=== PATIENT | male | born 1935 | race Caucasian/White ===

== ENCOUNTER 2018-03-20 16:50 | Inpatient (IN) | payer MEDICARE, OTHER ==
[~2018-03-20] VITALS: Ht 175.3 cm; Wt 78.9 kg
[2018-03-20] MEDS ORDERED: TEMAZEPAM 15 MG CAPSULE PO PRN (18:00)
[2018-03-20] MEDS ORDERED: DEXTROSE 50%-WATER 25 GM/50 ML SYRINGE IVP PRN (18:00)
[2018-03-20] MEDS ORDERED: CARBOXYMETHYLCELLULOSE SODIUM 0.4 ML OPHTHALMIC SOLUTION [PF] OU PRN (18:00)
[2018-03-20 18:53] VITALS: BP 148/82
[2018-03-20 18:53] LABS: GLUCOMETER DEV NAME(LOC) 2WR 1B; GLUCOSE,POINT OF CARE 174 MG/DL (70-110)
[2018-03-20] MEDS: INSULIN LISPRO 100 UNITS/ML SQ PRN (19:29)
[2018-03-20 20:37] LABS: APPEARANCE,URINE CLEAR (CLEAR); BILIRUBIN,URINE NEGATIVE (NEGATIVE); GLUCOSE, URINE (UA) NEGATIVE (NEGATIVE); KETONES,URINE NEGATIVE (NEGATIVE); LEUKOCYTE ESTERASE ,URINE NEGATIVE (NEGATIVE); NITRATE,URINE NEGATIVE (NEGATIVE); OCCULT BLOOD,URINE NEGATIVE (NEGATIVE); PH,URINE 5.5 (5.0-8.0); PROTEIN,URINE SEE CONFIRM (NEGATIVE); UROBILINOGEN,URINE 0.2 mg/dL (<=1.0)
[2018-03-20 21:00] LABS: SULFOSALICYLIC ACID,URINE 3+ (Negative)
[2018-03-20] MEDS ORDERED: DOCUSATE SODIUM 100 MG CAPSULE PO SCH (21:00)
[2018-03-20 21:02] LABS: BACTERIA,URINE Rare /HPF (None Seen); RBC,URINE None Seen /HPF (0-2)
[2018-03-20 21:03] LABS: SQUAMOUS EPITHELIAL CELL,UR Rare /LPF (None Seen)
[2018-03-20] MEDS: SENNA 187 MG TABLET PO SCH (22:36)
[2018-03-20] MEDS: ATORVASTATIN CALCIUM 40 MG TABLET PO SCH (22:37)
[2018-03-20] MEDS: INSULIN GLARGINE,HUM.REC.ANLOG 100 UNITS/ML SQ SCH (22:38)
[2018-03-20] MEDS: TraMADol HCL 50 MG TABLET PO PRN (22:39)
[2018-03-20] MEDS: DOCUSATE SODIUM 250 MG CAPSULE PO SCH (22:50)
[2018-03-20 22:58] LABS: GLUCOMETER DEV NAME(LOC) 2WR 1B; GLUCOSE,POINT OF CARE 160 MG/DL (70-110)
[2018-03-20 23:39] VITALS: BP 151/69
[2018-03-21] MEDS: HYDROCODONE/ACETAMINOPHEN 5-325 MG TABLET PO PRN ×3 (01:19→22:26)
[2018-03-21 06:35] LABS: GLUCOMETER DEV NAME(LOC) 2WR 2E; GLUCOSE,POINT OF CARE 152 MG/DL (70-110)
[2018-03-21 06:44] LABS: BASOPHILS % (AUTO) 0.8 % (0.0-2.0); EOSINOPHILS % (AUTO) 2.2 % (1.0-6.0); HEMOGLOBIN 11.4 g/dL (13.5-17.5); LYMPHOCYTES % (AUTO) 31.1 % (22.0-44.0); MEAN CORPUSCULAR HEMOGLOBIN 29.3 pg (26.0-34.0); MEAN CORPUSCULAR HGB CONC 33.5 G/dL (31.0-37.0); MEAN CORPUSCULAR VOLUME 88 fL (80-100); MONOCYTES # (AUTO) 0.5 K/uL (0.1-1.0); MONOCYTES % (AUTO) 7.9 % (2.0-9.0); NEUTROPHILS # (AUTO) 3.7 K/uL (1.8-7.7); PLATELET COUNT (AUTO) 257 K/uL (150-450); RED BLOOD CELL COUNT(AUTO) 3.89 MIL/uL (4.50-5.90); RED CELL DISTRIBUTION WIDTH 14.1 % (11.5-14.5)
[2018-03-21 06:57] LABS: ALBUMIN 3.1 g/dL (3.4-5.0); BILIRUBIN,TOTAL 0.5 mg/dL (0.1-1.0); CALCIUM, TOTAL 9.1 mg/dL (8.8-10.5); CREATININE 1.75 mg/dL (0.60-1.30); POTASSIUM 4.4 mmol/L (3.5-5.1); TOTAL PROTEIN, SERUM 6.9 g/dL (6.4-8.2)
[2018-03-21] MEDS ORDERED: ENOXAPARIN SODIUM 30 MG/0.3 ML PF SYRINGE SQ SCH (09:00)
[2018-03-21] MEDS: CLOPIDOGREL BISULFATE 75 MG TABLET PO SCH (10:47)
[2018-03-21] MEDS: DOCUSATE SODIUM 250 MG CAPSULE PO SCH ×2 (10:47→20:29)
[2018-03-21] MEDS: ASPIRIN 81 MG CHEWABLE TABLET PO SCH (10:47)
[2018-03-21] MEDS: POLYETHYLENE GLYCOL 3350 17 GM PACKET PO SCH ×2 (10:47→20:30)
[2018-03-21 10:58] VITALS: BP 148/82
[2018-03-21] MEDS: ONDANSETRON HCL 4 MG TABLET PO PRN (11:04)
[2018-03-21] MEDS: TraMADol HCL 50 MG TABLET PO PRN (11:53)
[2018-03-21 12:44] LABS: GLUCOMETER DEV NAME(LOC) 2WR 2E; GLUCOSE,POINT OF CARE 162 MG/DL (70-110)
[2018-03-21 12:50] VITALS: BP 130/78
[2018-03-21] MEDS: INSULIN LISPRO 100 UNITS/ML SQ PRN ×2 (13:29→20:35)
[2018-03-21 15:29] VITALS: BP 148/69
[2018-03-21 18:04] LABS: GLUCOMETER DEV NAME(LOC) 2WR 2E; GLUCOSE,POINT OF CARE 158 MG/DL (70-110)
[2018-03-21] MEDS: SENNA 187 MG TABLET PO SCH (20:29)
[2018-03-21] MEDS: ATORVASTATIN CALCIUM 40 MG TABLET PO SCH (20:31)
[2018-03-21] MEDS: INSULIN GLARGINE,HUM.REC.ANLOG 100 UNITS/ML SQ SCH (20:33)
[2018-03-21 21:38] LABS: GLUCOMETER DEV NAME(LOC) 2WR 2E; GLUCOSE,POINT OF CARE 142 MG/DL (70-110)
[2018-03-21 23:26] VITALS: BP 129/73
[2018-03-22] VITALS: BP 129/73
[2018-03-22] MEDS: TraMADol HCL 50 MG TABLET PO PRN (01:07)
[2018-03-22 06:39] LABS: GLUCOMETER DEV NAME(LOC) 2WR 1B; GLUCOSE,POINT OF CARE 91 MG/DL (70-110)
[2018-03-22] MEDS: ONDANSETRON HCL 4 MG TABLET PO PRN (09:14)
[2018-03-22 09:20] VITALS: BP 129/71
[2018-03-22] MEDS: ASPIRIN 81 MG CHEWABLE TABLET PO SCH (09:27)
[2018-03-22] MEDS: DOCUSATE SODIUM 250 MG CAPSULE PO SCH ×2 (09:27→20:25)
[2018-03-22] MEDS: CLOPIDOGREL BISULFATE 75 MG TABLET PO SCH (09:27)
[2018-03-22] MEDS: POLYETHYLENE GLYCOL 3350 17 GM PACKET PO SCH ×2 (09:27→20:25)
[2018-03-22 10:05] VITALS: BP 121/75
[2018-03-22 12:53] LABS: GLUCOMETER DEV NAME(LOC) 2WR 2E; GLUCOSE,POINT OF CARE 127 MG/DL (70-110)
[2018-03-22] MEDS: MAGNESIUM CITRATE 300 ML ORAL SOLUTION PO PRN (13:39)
[2018-03-22] MEDS ORDERED: ENOXAPARIN SODIUM 40 MG/0.4 ML PF SYRINGE SQ SCH (14:45)
[2018-03-22 15:57] VITALS: BP 133/86
[2018-03-22 17:49] LABS: GLUCOMETER DEV NAME(LOC) 2WR 1B; GLUCOSE,POINT OF CARE 120 MG/DL (70-110)
[2018-03-22] MEDS: DOCUSATE SODIUM 283 MG/5 ML MINI-ENEMA PR PRN (20:05)
[2018-03-22] MEDS: HEPARIN SODIUM,PORCINE 5,000 UNITS/ML VIAL SQ SCH (20:25)
[2018-03-22] MEDS: ATORVASTATIN CALCIUM 40 MG TABLET PO SCH (20:25)
[2018-03-22] MEDS: SENNA 187 MG TABLET PO SCH (20:25)
[2018-03-22] MEDS: INSULIN GLARGINE,HUM.REC.ANLOG 100 UNITS/ML SQ SCH (21:00)
[2018-03-22 22:04] LABS: GLUCOMETER DEV NAME(LOC) 2WR 2E; GLUCOSE,POINT OF CARE 116 MG/DL (70-110)
[2018-03-22] MEDS: MELATONIN 3 MG TABLET PO PRN (23:48)
[2018-03-23] MEDS: ONDANSETRON HCL 4 MG TABLET PO PRN (00:04)
[2018-03-23 00:09] VITALS: BP 147/71
[2018-03-23] MEDS: HYDROCODONE/ACETAMINOPHEN 5-325 MG TABLET PO PRN (00:09)
[2018-03-23 06:23] LABS: GLUCOMETER DEV NAME(LOC) 2WR 1B; GLUCOSE,POINT OF CARE 103 MG/DL (70-110)
[2018-03-23 07:37] VITALS: BP 131/67
[2018-03-23] MEDS: POLYETHYLENE GLYCOL 3350 17 GM PACKET PO SCH ×3 (09:00→20:52)
[2018-03-23] MEDS: MAGNESIUM CITRATE 300 ML ORAL SOLUTION PO PRN (11:31)
[2018-03-23] MEDS: HEPARIN SODIUM,PORCINE 5,000 UNITS/ML VIAL SQ SCH ×2 (11:31→20:52)
[2018-03-23] MEDS: CLOPIDOGREL BISULFATE 75 MG TABLET PO SCH (11:31)
[2018-03-23] MEDS: DOCUSATE SODIUM 250 MG CAPSULE PO SCH ×2 (11:31→20:52)
[2018-03-23] MEDS: ASPIRIN 81 MG CHEWABLE TABLET PO SCH (11:31)
[2018-03-23 12:24] LABS: GLUCOMETER DEV NAME(LOC) 2WR 2E; GLUCOSE,POINT OF CARE 85 MG/DL (70-110)
[2018-03-23] MEDS: DOCUSATE SODIUM 283 MG/5 ML MINI-ENEMA PR PRN (12:39)
[2018-03-23] MEDS ORDERED: MAGNESIUM CITRATE 300 ML ORAL SOLUTION PO ONE ×2 (12:45→13:30)
[2018-03-23 15:45] VITALS: BP 143/82
[2018-03-23 18:24] LABS: GLUCOMETER DEV NAME(LOC) 2WR 1B; GLUCOSE,POINT OF CARE 165 MG/DL (70-110)
[2018-03-23] MEDS: ATORVASTATIN CALCIUM 40 MG TABLET PO SCH (20:52)
[2018-03-23] MEDS: SENNA 187 MG TABLET PO SCH (20:52)
[2018-03-23] MEDS: INSULIN GLARGINE,HUM.REC.ANLOG 100 UNITS/ML SQ SCH (21:00)
[2018-03-23] MEDS: TraMADol HCL 50 MG TABLET PO PRN (21:31)
[2018-03-23 22:09] LABS: GLUCOMETER DEV NAME(LOC) 2WR 1B; GLUCOSE,POINT OF CARE 143 MG/DL (70-110)
[2018-03-23 23:43] VITALS: BP 124/62
[2018-03-23] MEDS: MELATONIN 3 MG TABLET PO PRN (23:43)
[2018-03-24 06:14] LABS: GLUCOMETER DEV NAME(LOC) 2WR 2E; GLUCOSE,POINT OF CARE 143 MG/DL (70-110)
[2018-03-24 07:50] VITALS: BP 129/75
[2018-03-24] MEDS: POLYETHYLENE GLYCOL 3350 17 GM PACKET PO SCH ×2 (09:00→20:29)
[2018-03-24] MEDS: DOCUSATE SODIUM 250 MG CAPSULE PO SCH ×2 (09:00→20:29)
[2018-03-24] MEDS ORDERED: FAMOTIDINE 20 MG TABLET PO ONE (09:30)
[2018-03-24] MEDS: ASPIRIN 81 MG CHEWABLE TABLET PO SCH (09:32)
[2018-03-24] MEDS: CLOPIDOGREL BISULFATE 75 MG TABLET PO SCH (09:32)
[2018-03-24] MEDS: ONDANSETRON HCL 4 MG TABLET PO PRN (09:32)
[2018-03-24] MEDS: HYDROCODONE/ACETAMINOPHEN 5-325 MG TABLET PO PRN (09:32)
[2018-03-24] MEDS: HEPARIN SODIUM,PORCINE 5,000 UNITS/ML VIAL SQ SCH ×2 (09:32→20:28)
[2018-03-24 12:06] LABS: BASOPHILS % (AUTO) 0.8 % (0.0-2.0); EOSINOPHILS % (AUTO) 0.9 % (1.0-6.0); HEMATOCRIT 37.1 % (41-53); HEMOGLOBIN 12.2 g/dL (13.5-17.5); LYMPHOCYTES # (AUTO) 0.9 K/uL (1.0-4.8); LYMPHOCYTES % (AUTO) 12.5 % (22.0-44.0); MEAN CORPUSCULAR HEMOGLOBIN 28.7 pg (26.0-34.0); MEAN CORPUSCULAR HGB CONC 32.9 G/dL (31.0-37.0); MEAN CORPUSCULAR VOLUME 87 fL (80-100); MONOCYTES # (AUTO) 0.5 K/uL (0.1-1.0); MONOCYTES % (AUTO) 6.3 % (2.0-9.0); NEUTROPHILS # (AUTO) 5.8 K/uL (1.8-7.7); NEUTROPHILS % (AUTO) 79.5 % (40.0-70.0); PLATELET COUNT (AUTO) 302 K/uL (150-450); RED BLOOD CELL COUNT(AUTO) 4.25 MIL/uL (4.50-5.90); RED CELL DISTRIBUTION WIDTH 14.7 % (11.5-14.5)
[2018-03-24 12:39] LABS: GLUCOMETER DEV NAME(LOC) 2WR 1B; GLUCOSE,POINT OF CARE 173 MG/DL (70-110)
[2018-03-24] MEDS: LEVOTHYROXINE SODIUM 50 MCG TABLET PO SCH (13:19)
[2018-03-24] MEDS: INSULIN LISPRO 100 UNITS/ML SQ PRN ×2 (13:21→18:49)
[2018-03-24 14:40] LABS: ALBUMIN 3.5 g/dL (3.4-5.0); BILIRUBIN,TOTAL 0.5 mg/dL (0.1-1.0); CALCIUM, TOTAL 9.2 mg/dL (8.8-10.5); CREATININE 2.06 mg/dL (0.60-1.30); POTASSIUM 5.3 mmol/L (3.5-5.1); TOTAL PROTEIN, SERUM 7.8 g/dL (6.4-8.2)
[2018-03-24] MEDS ORDERED: SODIUM POLYSTYRENE SULFONATE 15 GM/60 ML SUSPENSION BOTTLE PO ONE (15:45)
[2018-03-24 15:52] VITALS: BP 138/79
[2018-03-24] MEDS: FAMOTIDINE 20 MG TABLET PO SCH (16:50)
[2018-03-24 17:58] LABS: GLUCOMETER DEV NAME(LOC) 2WR 2E; GLUCOSE,POINT OF CARE 150 MG/DL (70-110)
[2018-03-24] MEDS: SODIUM CHLORIDE 0.9% 1,000 ML IV SCH (18:19)
[2018-03-24] MEDS: SENNA 187 MG TABLET PO SCH (20:29)
[2018-03-24] MEDS: ATORVASTATIN CALCIUM 40 MG TABLET PO SCH (20:29)
[2018-03-24] MEDS: INSULIN GLARGINE,HUM.REC.ANLOG 100 UNITS/ML SQ SCH (21:00)
[2018-03-24 22:53] LABS: GLUCOMETER DEV NAME(LOC) 2WR 2E; GLUCOSE,POINT OF CARE 161 MG/DL (70-110)
[2018-03-25] MEDS: MELATONIN 3 MG TABLET PO PRN ×2 (00:30→22:20)
[2018-03-25 00:44] VITALS: BP 132/66
[2018-03-25] MEDS: LEVOTHYROXINE SODIUM 50 MCG TABLET PO SCH (05:22)
[2018-03-25] MEDS: FAMOTIDINE 20 MG TABLET PO SCH ×2 (05:22→15:56)
[2018-03-25 06:09] LABS: GLUCOMETER DEV NAME(LOC) 2WR 2E; GLUCOSE,POINT OF CARE 152 MG/DL (70-110)
[2018-03-25] MEDS: SODIUM CHLORIDE 0.9% 1,000 ML IV SCH (06:15)
[2018-03-25 06:58] LABS: CALCIUM, TOTAL 8.5 mg/dL (8.8-10.5); CREATININE 1.81 mg/dL (0.60-1.30); POTASSIUM 3.7 mmol/L (3.5-5.1)
[2018-03-25 08:00] VITALS: BP 150/78
[2018-03-25] MEDS: DOCUSATE SODIUM 250 MG CAPSULE PO SCH ×2 (08:20→20:19)
[2018-03-25] MEDS: POLYETHYLENE GLYCOL 3350 17 GM PACKET PO SCH ×2 (08:20→20:19)
[2018-03-25] MEDS: ASPIRIN 81 MG CHEWABLE TABLET PO SCH (08:21)
[2018-03-25] MEDS: SERTRALINE HCL 50 MG TABLET PO SCH (08:21)
[2018-03-25] MEDS: CLOPIDOGREL BISULFATE 75 MG TABLET PO SCH (08:21)
[2018-03-25] MEDS: HEPARIN SODIUM,PORCINE 5,000 UNITS/ML VIAL SQ SCH ×2 (08:21→20:27)
[2018-03-25 15:50] VITALS: BP 134/59
[2018-03-25] MEDS: 0.9% SODIUM CHLORIDE 10 ML SYRINGE IVP SCH ×2 (15:56→23:39)
[2018-03-25 16:48] LABS: GLUCOMETER DEV NAME(LOC) 2WR 1B; GLUCOSE,POINT OF CARE 97 MG/DL (70-110)
[2018-03-25 17:44] LABS: GLUCOMETER DEV NAME(LOC) 2WR 2E; GLUCOSE,POINT OF CARE 163 MG/DL (70-110)
[2018-03-25] MEDS: SENNA 187 MG TABLET PO SCH (20:20)
[2018-03-25] MEDS: ATORVASTATIN CALCIUM 40 MG TABLET PO SCH (20:27)
[2018-03-25] MEDS: INSULIN GLARGINE,HUM.REC.ANLOG 100 UNITS/ML SQ SCH (21:00)
[2018-03-25 22:08] LABS: GLUCOMETER DEV NAME(LOC) 2WR 1B; GLUCOSE,POINT OF CARE 199 MG/DL (70-110)
[2018-03-26 00:04] VITALS: BP 150/72
[2018-03-26] MEDS: ONDANSETRON HCL 4 MG TABLET PO PRN (00:43)
[2018-03-26] MEDS: HYDROCODONE/ACETAMINOPHEN 5-325 MG TABLET PO PRN ×2 (02:38→23:54)
[2018-03-26] MEDS: LEVOTHYROXINE SODIUM 50 MCG TABLET PO SCH (06:01)
[2018-03-26] MEDS: FAMOTIDINE 20 MG TABLET PO SCH ×2 (06:01→16:09)
[2018-03-26 06:24] LABS: GLUCOMETER DEV NAME(LOC) 2WR 1B; GLUCOSE,POINT OF CARE 146 MG/DL (70-110)
[2018-03-26 07:44] VITALS: BP 141/74
[2018-03-26] MEDS: SERTRALINE HCL 50 MG TABLET PO SCH (08:53)
[2018-03-26] MEDS: HEPARIN SODIUM,PORCINE 5,000 UNITS/ML VIAL SQ SCH ×2 (08:53→20:56)
[2018-03-26] MEDS: ASPIRIN 81 MG CHEWABLE TABLET PO SCH (08:53)
[2018-03-26] MEDS: POLYETHYLENE GLYCOL 3350 17 GM PACKET PO SCH ×3 (08:53→20:56)
[2018-03-26] MEDS: CLOPIDOGREL BISULFATE 75 MG TABLET PO SCH (08:53)
[2018-03-26] MEDS: 0.9% SODIUM CHLORIDE 10 ML SYRINGE IVP SCH ×3 (08:54→23:54)
[2018-03-26] MEDS: DOCUSATE SODIUM 250 MG CAPSULE PO SCH ×2 (09:00→20:56)
[2018-03-26] MEDS: INSULIN LISPRO 100 UNITS/ML SQ PRN ×3 (13:00→21:13)
[2018-03-26 15:08] LABS: GLUCOMETER DEV NAME(LOC) 2WR 1B; GLUCOSE,POINT OF CARE 197 MG/DL (70-110)
[2018-03-26 16:00] VITALS: BP 141/75
[2018-03-26] MEDS: ACETAMINOPHEN 325 MG TABLET PO PRN (16:10)
[2018-03-26 17:49] LABS: GLUCOMETER DEV NAME(LOC) 2WR 1B; GLUCOSE,POINT OF CARE 199 MG/DL (70-110)
[2018-03-26] MEDS: SENNA 187 MG TABLET PO SCH (20:56)
[2018-03-26] MEDS: ATORVASTATIN CALCIUM 40 MG TABLET PO SCH (20:56)
[2018-03-26] MEDS: MELATONIN 3 MG TABLET PO PRN (20:57)
[2018-03-26] MEDS: INSULIN GLARGINE,HUM.REC.ANLOG 100 UNITS/ML SQ SCH (21:10)
[2018-03-26 22:13] LABS: GLUCOMETER DEV NAME(LOC) 2WR 1B; GLUCOSE,POINT OF CARE 216 MG/DL (70-110)
[2018-03-26 23:54] VITALS: BP 143/77
[2018-03-27] MEDS: FAMOTIDINE 20 MG TABLET PO SCH ×2 (06:23→17:42)
[2018-03-27] MEDS: LEVOTHYROXINE SODIUM 50 MCG TABLET PO SCH (06:23)
[2018-03-27 06:39] LABS: GLUCOMETER DEV NAME(LOC) 2WR 1B; GLUCOSE,POINT OF CARE 163 MG/DL (70-110)
[2018-03-27 09:00] VITALS: BP 149/76
[2018-03-27] MEDS: POLYETHYLENE GLYCOL 3350 17 GM PACKET PO SCH ×2 (09:00→19:56)
[2018-03-27] MEDS: 0.9% SODIUM CHLORIDE 10 ML SYRINGE IVP SCH ×3 (09:07→23:16)
[2018-03-27] MEDS: SERTRALINE HCL 50 MG TABLET PO SCH (09:07)
[2018-03-27] MEDS: ASPIRIN 81 MG CHEWABLE TABLET PO SCH (09:07)
[2018-03-27] MEDS: CLOPIDOGREL BISULFATE 75 MG TABLET PO SCH (09:07)
[2018-03-27] MEDS: DOCUSATE SODIUM 250 MG CAPSULE PO SCH ×2 (09:07→19:56)
[2018-03-27] MEDS: HEPARIN SODIUM,PORCINE 5,000 UNITS/ML VIAL SQ SCH ×2 (09:08→19:56)
[2018-03-27] MEDS: INSULIN LISPRO 100 UNITS/ML SQ PRN ×3 (13:02→20:11)
[2018-03-27 13:04] LABS: GLUCOMETER DEV NAME(LOC) 2WR 1B; GLUCOSE,POINT OF CARE 178 MG/DL (70-110)
[2018-03-27] MEDS: TraMADol HCL 50 MG TABLET PO PRN (15:34)
[2018-03-27 15:35] VITALS: BP 143/60
[2018-03-27 18:09] LABS: GLUCOMETER DEV NAME(LOC) 2WR 1B; GLUCOSE,POINT OF CARE 183 MG/DL (70-110)
[2018-03-27] MEDS: SENNA 187 MG TABLET PO SCH (19:56)
[2018-03-27] MEDS: ATORVASTATIN CALCIUM 40 MG TABLET PO SCH (19:56)
[2018-03-27] MEDS: TEMAZEPAM 7.5 MG CAPSULE PO PRN (20:02)
[2018-03-27] MEDS: INSULIN GLARGINE,HUM.REC.ANLOG 100 UNITS/ML SQ SCH (20:10)
[2018-03-27] MEDS: OXYGEN THERAPY IH SCH (23:14)
[2018-03-28 00:54] VITALS: BP 136/71
[2018-03-28] MEDS: TraMADol HCL 50 MG TABLET PO PRN (00:54)
[2018-03-28 03:14] LABS: GLUCOMETER DEV NAME(LOC) 2WR 2E; GLUCOSE,POINT OF CARE 225 MG/DL (70-110)
[2018-03-28] MEDS: FAMOTIDINE 20 MG TABLET PO SCH ×2 (06:00→16:46)
[2018-03-28] MEDS: LEVOTHYROXINE SODIUM 50 MCG TABLET PO SCH (06:00)
[2018-03-28] MEDS: DOCUSATE SODIUM 283 MG/5 ML MINI-ENEMA PR PRN ×2 (06:00→06:40)
[2018-03-28 06:04] LABS: GLUCOMETER DEV NAME(LOC) 2WR 1B; GLUCOSE,POINT OF CARE 167 MG/DL (70-110)
[2018-03-28 08:30] VITALS: BP 146/76
[2018-03-28] MEDS: ONDANSETRON HCL 4 MG TABLET PO PRN (08:58)
[2018-03-28] MEDS: SERTRALINE HCL 50 MG TABLET PO SCH (08:59)
[2018-03-28] MEDS: ASPIRIN 81 MG CHEWABLE TABLET PO SCH (08:59)
[2018-03-28] MEDS: CLOPIDOGREL BISULFATE 75 MG TABLET PO SCH (08:59)
[2018-03-28] MEDS: DOCUSATE SODIUM 250 MG CAPSULE PO SCH ×2 (08:59→20:53)
[2018-03-28] MEDS: POLYETHYLENE GLYCOL 3350 17 GM PACKET PO SCH ×2 (08:59→20:53)
[2018-03-28] MEDS: HEPARIN SODIUM,PORCINE 5,000 UNITS/ML VIAL SQ SCH ×2 (08:59→20:53)
[2018-03-28] MEDS: 0.9% SODIUM CHLORIDE 10 ML SYRINGE IVP SCH ×2 (09:00→16:46)
[2018-03-28] MEDS: OXYGEN THERAPY IH SCH ×2 (09:00→20:00)
[2018-03-28] MEDS ORDERED: ALBUTEROL SULFATE 2.5 MG/0.5 ML NEB SOLUTION NEB PRN (11:15)
[2018-03-28] MEDS: INSULIN LISPRO 100 UNITS/ML SQ PRN ×3 (12:53→21:11)
[2018-03-28 12:54] LABS: GLUCOMETER DEV NAME(LOC) 2WR 2E; GLUCOSE,POINT OF CARE 187 MG/DL (70-110)
[2018-03-28 12:54] LABS: GLUCOMETER DEV NAME(LOC) 2WR 1B; GLUCOSE,POINT OF CARE 193 MG/DL (70-110)
[2018-03-28 15:27] VITALS: BP 146/78
[2018-03-28 18:29] LABS: GLUCOMETER DEV NAME(LOC) 2WR 2E; GLUCOSE,POINT OF CARE 199 MG/DL (70-110)
[2018-03-28] MEDS: SENNA 187 MG TABLET PO SCH (20:53)
[2018-03-28] MEDS: MIRTAZAPINE 15 MG TABLET PO SCH (20:53)
[2018-03-28] MEDS: ATORVASTATIN CALCIUM 40 MG TABLET PO SCH (20:53)
[2018-03-28 20:55] VITALS: BP 131/76
[2018-03-28] MEDS: INSULIN GLARGINE,HUM.REC.ANLOG 100 UNITS/ML SQ SCH (21:09)
[2018-03-28 22:14] LABS: GLUCOMETER DEV NAME(LOC) 2WR 2E; GLUCOSE,POINT OF CARE 192 MG/DL (70-110)
[2018-03-29] MEDS: 0.9% SODIUM CHLORIDE 10 ML SYRINGE IVP SCH ×3 (00:39→13:19)
[2018-03-29 01:11] VITALS: BP 150/87
[2018-03-29] MEDS: LEVOTHYROXINE SODIUM 50 MCG TABLET PO SCH ×2 (06:02→13:08)
[2018-03-29] MEDS: FAMOTIDINE 20 MG TABLET PO SCH ×3 (06:02→17:13)
[2018-03-29 06:29] LABS: GLUCOMETER DEV NAME(LOC) 2WR 1B; GLUCOSE,POINT OF CARE 175 MG/DL (70-110)
[2018-03-29] MEDS: OXYGEN THERAPY IH SCH ×2 (08:00→20:00)
[2018-03-29 09:00] VITALS: BP 122/67
[2018-03-29] MEDS ORDERED: BISACODYL 5 MG EC TABLET PO ONE (09:30)
[2018-03-29] MEDS ORDERED: BISACODYL 5 MG EC TABLET PO PRN (09:30)
[2018-03-29] MEDS: DOCUSATE SODIUM 250 MG CAPSULE PO SCH ×2 (13:08→20:44)
[2018-03-29] MEDS: MULTIVITAMINS WITH MINERALS, THERAPEUTIC TABLET PO SCH (13:08)
[2018-03-29] MEDS: ASPIRIN 81 MG CHEWABLE TABLET PO SCH (13:08)
[2018-03-29] MEDS: CLOPIDOGREL BISULFATE 75 MG TABLET PO SCH (13:08)
[2018-03-29] MEDS: HEPARIN SODIUM,PORCINE 5,000 UNITS/ML VIAL SQ SCH ×2 (13:09→20:44)
[2018-03-29] MEDS: POLYETHYLENE GLYCOL 3350 17 GM PACKET PO SCH ×2 (13:09→20:43)
[2018-03-29] MEDS: TraMADol HCL 50 MG TABLET PO PRN ×2 (13:15→19:19)
[2018-03-29] MEDS: INSULIN LISPRO 100 UNITS/ML SQ PRN ×3 (13:16→20:56)
[2018-03-29 13:28] LABS: GLUCOMETER DEV NAME(LOC) 2WR 1B; GLUCOSE,POINT OF CARE 163 MG/DL (70-110)
[2018-03-29 15:43] VITALS: BP 126/75
[2018-03-29 18:04] LABS: GLUCOMETER DEV NAME(LOC) 2WR 1B; GLUCOSE,POINT OF CARE 193 MG/DL (70-110)
[2018-03-29 19:19] VITALS: BP 141/77
[2018-03-29] MEDS: SENNA 187 MG TABLET PO SCH (20:44)
[2018-03-29] MEDS: ATORVASTATIN CALCIUM 40 MG TABLET PO SCH (20:44)
[2018-03-29] MEDS: HYDROCODONE/ACETAMINOPHEN 5-325 MG TABLET PO PRN (20:44)
[2018-03-29] MEDS: MIRTAZAPINE 15 MG TABLET PO SCH (20:44)
[2018-03-29] MEDS: INSULIN GLARGINE,HUM.REC.ANLOG 100 UNITS/ML SQ SCH (20:55)
[2018-03-29 22:33] LABS: GLUCOMETER DEV NAME(LOC) 2WR 1B; GLUCOSE,POINT OF CARE 209 MG/DL (70-110)
[2018-03-29 23:07] VITALS: BP 134/73
[2018-03-30] MEDS: TEMAZEPAM 7.5 MG CAPSULE PO PRN (00:15)
[2018-03-30] MEDS: LEVOTHYROXINE SODIUM 50 MCG TABLET PO SCH (06:01)
[2018-03-30] MEDS: FAMOTIDINE 20 MG TABLET PO SCH ×2 (06:01→16:53)
[2018-03-30 06:53] LABS: GLUCOMETER DEV NAME(LOC) 2WR 2E; GLUCOSE,POINT OF CARE 138 MG/DL (70-110)
[2018-03-30] MEDS: OXYGEN THERAPY IH SCH ×2 (08:00→20:00)
[2018-03-30 08:30] VITALS: BP 118/59
[2018-03-30] MEDS: DOCUSATE SODIUM 250 MG CAPSULE PO SCH ×2 (10:28→20:20)
[2018-03-30] MEDS: CLOPIDOGREL BISULFATE 75 MG TABLET PO SCH (10:28)
[2018-03-30] MEDS: MULTIVITAMINS WITH MINERALS, THERAPEUTIC TABLET PO SCH (10:28)
[2018-03-30] MEDS: HEPARIN SODIUM,PORCINE 5,000 UNITS/ML VIAL SQ SCH ×2 (10:28→20:20)
[2018-03-30] MEDS: ASPIRIN 81 MG CHEWABLE TABLET PO SCH (10:28)
[2018-03-30] MEDS: POLYETHYLENE GLYCOL 3350 17 GM PACKET PO SCH ×3 (10:29→21:00)
[2018-03-30] MEDS: ONDANSETRON HCL 4 MG TABLET PO PRN (12:20)
[2018-03-30] MEDS: INSULIN LISPRO 100 UNITS/ML SQ PRN ×3 (12:22→20:25)
[2018-03-30 13:04] LABS: GLUCOMETER DEV NAME(LOC) 2WR 2E; GLUCOSE,POINT OF CARE 228 MG/DL (70-110)
[2018-03-30] MEDS: DOCUSATE SODIUM 283 MG/5 ML MINI-ENEMA PR PRN (13:08)
[2018-03-30 16:32] VITALS: BP 103/47
[2018-03-30 18:29] LABS: GLUCOMETER DEV NAME(LOC) 2WR 1B; GLUCOSE,POINT OF CARE 214 MG/DL (70-110)
[2018-03-30] MEDS: HYDROCODONE/ACETAMINOPHEN 5-325 MG TABLET PO PRN (18:52)
[2018-03-30] MEDS: ATORVASTATIN CALCIUM 40 MG TABLET PO SCH (20:20)
[2018-03-30] MEDS: SENNA 187 MG TABLET PO SCH (20:20)
[2018-03-30] MEDS: MIRTAZAPINE 15 MG TABLET PO SCH (20:20)
[2018-03-30] MEDS: INSULIN GLARGINE,HUM.REC.ANLOG 100 UNITS/ML SQ SCH (20:24)
[2018-03-30 20:34] LABS: GLUCOMETER DEV NAME(LOC) 2WR 1B; GLUCOSE,POINT OF CARE 240 MG/DL (70-110)
[2018-03-30 23:56] VITALS: BP 131/64
[2018-03-31] MEDS: TEMAZEPAM 7.5 MG CAPSULE PO PRN (00:11)
[2018-03-31] MEDS: LEVOTHYROXINE SODIUM 50 MCG TABLET PO SCH (06:18)
[2018-03-31] MEDS: FAMOTIDINE 20 MG TABLET PO SCH ×2 (06:18→16:19)
[2018-03-31 06:34] LABS: GLUCOMETER DEV NAME(LOC) 2WR 1B; GLUCOSE,POINT OF CARE 179 MG/DL (70-110)
[2018-03-31] MEDS: OXYGEN THERAPY IH SCH ×2 (08:00→20:00)
[2018-03-31] MEDS: MULTIVITAMINS WITH MINERALS, THERAPEUTIC TABLET PO SCH (08:13)
[2018-03-31] MEDS: HEPARIN SODIUM,PORCINE 5,000 UNITS/ML VIAL SQ SCH ×2 (08:13→20:20)
[2018-03-31] MEDS: ASPIRIN 81 MG CHEWABLE TABLET PO SCH (08:13)
[2018-03-31] MEDS: CLOPIDOGREL BISULFATE 75 MG TABLET PO SCH (08:13)
[2018-03-31] MEDS: INSULIN LISPRO 100 UNITS/ML SQ PRN ×3 (08:18→21:58)
[2018-03-31] MEDS: POLYETHYLENE GLYCOL 3350 17 GM PACKET PO SCH ×2 (09:00→20:20)
[2018-03-31] MEDS: DOCUSATE SODIUM 250 MG CAPSULE PO SCH ×2 (09:00→20:20)
[2018-03-31 12:16] VITALS: BP 142/83
[2018-03-31 12:39] LABS: GLUCOMETER DEV NAME(LOC) 2WR 1B; GLUCOSE,POINT OF CARE 206 MG/DL (70-110)
[2018-03-31 15:15] VITALS: BP 124/72
[2018-03-31 15:30] VITALS: BP 124/72
[2018-03-31 18:04] LABS: GLUCOMETER DEV NAME(LOC) 2WR 1B; GLUCOSE,POINT OF CARE 169 MG/DL (70-110)
[2018-03-31] MEDS: MIRTAZAPINE 15 MG TABLET PO SCH (20:20)
[2018-03-31] MEDS: SENNA 187 MG TABLET PO SCH (20:20)
[2018-03-31] MEDS: ATORVASTATIN CALCIUM 40 MG TABLET PO SCH (20:20)
[2018-03-31] MEDS: INSULIN GLARGINE,HUM.REC.ANLOG 100 UNITS/ML SQ SCH (21:57)
[2018-04-01 02:43] VITALS: BP 137/68
[2018-04-01 04:29] LABS: GLUCOMETER DEV NAME(LOC) 2WR 1B; GLUCOSE,POINT OF CARE 167 MG/DL (70-110)
[2018-04-01] MEDS: FAMOTIDINE 20 MG TABLET PO SCH ×2 (05:56→17:05)
[2018-04-01] MEDS: LEVOTHYROXINE SODIUM 50 MCG TABLET PO SCH (05:56)
[2018-04-01 06:24] LABS: GLUCOMETER DEV NAME(LOC) 2WR 2E; GLUCOSE,POINT OF CARE 161 MG/DL (70-110)
[2018-04-01 07:26] VITALS: BP 138/57
[2018-04-01] MEDS: OXYGEN THERAPY IH SCH ×2 (08:00→20:00)
[2018-04-01] MEDS: MULTIVITAMINS WITH MINERALS, THERAPEUTIC TABLET PO SCH (08:17)
[2018-04-01] MEDS: DOCUSATE SODIUM 250 MG CAPSULE PO SCH ×2 (08:17→20:38)
[2018-04-01] MEDS: HEPARIN SODIUM,PORCINE 5,000 UNITS/ML VIAL SQ SCH ×2 (08:18→20:37)
[2018-04-01] MEDS: ASPIRIN 81 MG CHEWABLE TABLET PO SCH (08:18)
[2018-04-01] MEDS: CLOPIDOGREL BISULFATE 75 MG TABLET PO SCH (08:18)
[2018-04-01] MEDS: TraMADol HCL 50 MG TABLET PO PRN (08:19)
[2018-04-01] MEDS: INSULIN LISPRO 100 UNITS/ML SQ PRN ×3 (08:26→18:13)
[2018-04-01] MEDS: POLYETHYLENE GLYCOL 3350 17 GM PACKET PO SCH ×2 (08:28→20:37)
[2018-04-01] MEDS: HYDROCODONE/ACETAMINOPHEN 5-325 MG TABLET PO PRN ×2 (12:46→20:03)
[2018-04-01 13:04] LABS: GLUCOMETER DEV NAME(LOC) 2WR 1B; GLUCOSE,POINT OF CARE 213 MG/DL (70-110)
[2018-04-01 15:14] VITALS: BP 144/87
[2018-04-01 17:35] VITALS: BP 144/87
[2018-04-01 19:12] LABS: GLUCOMETER DEV NAME(LOC) 2WR 2E; GLUCOSE,POINT OF CARE 214 MG/DL (70-110)
[2018-04-01] MEDS: ATORVASTATIN CALCIUM 40 MG TABLET PO SCH (20:37)
[2018-04-01] MEDS: SENNA 187 MG TABLET PO SCH (20:38)
[2018-04-01] MEDS: MIRTAZAPINE 15 MG TABLET PO SCH (20:38)
[2018-04-01] MEDS: INSULIN GLARGINE,HUM.REC.ANLOG 100 UNITS/ML SQ SCH (20:54)
[2018-04-01 20:58] VITALS: BP 131/75
[2018-04-01 22:41] LABS: GLUCOMETER DEV NAME(LOC) 2WR 1B; GLUCOSE,POINT OF CARE 225 MG/DL (70-110)
[2018-04-01 23:35] VITALS: BP 138/69
[2018-04-02] VITALS (7 sets, daily range): BP systolic 104–160; BP diastolic 63–95
[2018-04-02] MEDS: FAMOTIDINE 20 MG TABLET PO SCH ×2 (05:35→17:00)
[2018-04-02] MEDS: LEVOTHYROXINE SODIUM 50 MCG TABLET PO SCH (05:35)
[2018-04-02 05:49] LABS: GLUCOMETER DEV NAME(LOC) 2WR 1B; GLUCOSE,POINT OF CARE 196 MG/DL (70-110)
[2018-04-02] MEDS: OXYGEN THERAPY IH SCH ×2 (08:00→19:56)
[2018-04-02] MEDS: CLOPIDOGREL BISULFATE 75 MG TABLET PO SCH (08:39)
[2018-04-02] MEDS: ASPIRIN 81 MG CHEWABLE TABLET PO SCH (08:39)
[2018-04-02] MEDS: HEPARIN SODIUM,PORCINE 5,000 UNITS/ML VIAL SQ SCH ×2 (08:39→20:55)
[2018-04-02] MEDS: POLYETHYLENE GLYCOL 3350 17 GM PACKET PO SCH ×3 (08:40→21:00)
[2018-04-02] MEDS: DOCUSATE SODIUM 250 MG CAPSULE PO SCH ×3 (08:40→21:00)
[2018-04-02] MEDS: MULTIVITAMINS WITH MINERALS, THERAPEUTIC TABLET PO SCH (08:40)
[2018-04-02] MEDS: INSULIN LISPRO 100 UNITS/ML SQ PRN ×4 (08:46→20:57)
[2018-04-02 13:33] LABS: GLUCOMETER DEV NAME(LOC) 2WR 1B; GLUCOSE,POINT OF CARE 230 MG/DL (70-110)
[2018-04-02] MEDS: ONDANSETRON HCL 4 MG TABLET PO PRN (17:11)
[2018-04-02 17:58] LABS: GLUCOMETER DEV NAME(LOC) 2WR 1B; GLUCOSE,POINT OF CARE 259 MG/DL (70-110)
[2018-04-02] MEDS: ATORVASTATIN CALCIUM 40 MG TABLET PO SCH (20:54)
[2018-04-02] MEDS: MIRTAZAPINE 15 MG TABLET PO SCH (20:54)
[2018-04-02] MEDS: TEMAZEPAM 7.5 MG CAPSULE PO PRN (20:54)
[2018-04-02] MEDS: SENNA 187 MG TABLET PO SCH ×2 (20:54→21:00)
[2018-04-02] MEDS: INSULIN GLARGINE,HUM.REC.ANLOG 100 UNITS/ML SQ SCH (20:56)
[2018-04-02 21:48] LABS: GLUCOMETER DEV NAME(LOC) 2WR 1B; GLUCOSE,POINT OF CARE 278 MG/DL (70-110)
[2018-04-03] VITALS (7 sets, daily range): BP systolic 130–150; BP diastolic 60–79
[2018-04-03] MEDS: LEVOTHYROXINE SODIUM 50 MCG TABLET PO SCH (06:15)
[2018-04-03] MEDS: FAMOTIDINE 20 MG TABLET PO SCH ×2 (06:15→17:04)
[2018-04-03 06:24] LABS: GLUCOMETER DEV NAME(LOC) 2WR 1B; GLUCOSE,POINT OF CARE 205 MG/DL (70-110)
[2018-04-03] MEDS: OXYGEN THERAPY IH SCH ×2 (08:00→19:25)
[2018-04-03] MEDS: POLYETHYLENE GLYCOL 3350 17 GM PACKET PO SCH ×2 (10:09→21:00)
[2018-04-03] MEDS: MULTIVITAMINS WITH MINERALS, THERAPEUTIC TABLET PO SCH (10:10)
[2018-04-03] MEDS: CLOPIDOGREL BISULFATE 75 MG TABLET PO SCH (10:10)
[2018-04-03] MEDS: DOCUSATE SODIUM 250 MG CAPSULE PO SCH ×2 (10:10→21:00)
[2018-04-03] MEDS: ASPIRIN 81 MG CHEWABLE TABLET PO SCH (10:10)
[2018-04-03] MEDS: TraMADol HCL 50 MG TABLET PO PRN (10:10)
[2018-04-03] MEDS: HEPARIN SODIUM,PORCINE 5,000 UNITS/ML VIAL SQ SCH ×2 (10:11→21:31)
[2018-04-03] MEDS: INSULIN LISPRO 100 UNITS/ML SQ PRN ×4 (10:25→21:33)
[2018-04-03 12:43] LABS: GLUCOMETER DEV NAME(LOC) 2WR 2E; GLUCOSE,POINT OF CARE 277 MG/DL (70-110)
[2018-04-03 20:14] LABS: GLUCOMETER DEV NAME(LOC) 2WR 1B; GLUCOSE,POINT OF CARE 211 MG/DL (70-110)
[2018-04-03] MEDS: MIRTAZAPINE 15 MG TABLET PO SCH (21:31)
[2018-04-03] MEDS: SENNA 187 MG TABLET PO SCH (21:31)
[2018-04-03] MEDS: ATORVASTATIN CALCIUM 40 MG TABLET PO SCH (21:31)
[2018-04-03] MEDS: INSULIN GLARGINE,HUM.REC.ANLOG 100 UNITS/ML SQ SCH (21:33)
[2018-04-03 21:49] LABS: GLUCOMETER DEV NAME(LOC) 2WR 2E; GLUCOSE,POINT OF CARE 267 MG/DL (70-110)
[2018-04-04] VITALS (8 sets, daily range): BP systolic 120–142; BP diastolic 60–80
[2018-04-04] MEDS: LEVOTHYROXINE SODIUM 50 MCG TABLET PO SCH (05:51)
[2018-04-04] MEDS: TraMADol HCL 50 MG TABLET PO PRN ×2 (05:51→09:20)
[2018-04-04] MEDS: FAMOTIDINE 20 MG TABLET PO SCH ×2 (05:51→16:24)
[2018-04-04 06:05] LABS: GLUCOMETER DEV NAME(LOC) 2WR 1B; GLUCOSE,POINT OF CARE 228 MG/DL (70-110)
[2018-04-04] MEDS: OXYGEN THERAPY IH SCH ×2 (08:00→20:00)
[2018-04-04] MEDS: DOCUSATE SODIUM 250 MG CAPSULE PO SCH ×2 (09:19→21:00)
[2018-04-04] MEDS: MULTIVITAMINS WITH MINERALS, THERAPEUTIC TABLET PO SCH (09:19)
[2018-04-04] MEDS: POLYETHYLENE GLYCOL 3350 17 GM PACKET PO SCH ×2 (09:19→21:00)
[2018-04-04] MEDS: ASPIRIN 81 MG CHEWABLE TABLET PO SCH (09:20)
[2018-04-04] MEDS: HEPARIN SODIUM,PORCINE 5,000 UNITS/ML VIAL SQ SCH ×2 (09:21→21:39)
[2018-04-04] MEDS: CLOPIDOGREL BISULFATE 75 MG TABLET PO SCH (09:21)
[2018-04-04] MEDS: INSULIN LISPRO 100 UNITS/ML SQ PRN ×4 (09:27→21:41)
[2018-04-04] MEDS ORDERED: TRIAMCINOLONE ACETONIDE 40 MG/ML VIAL IM ONE (10:45)
[2018-04-04] MEDS ORDERED: BUPIVACAINE HCL 0.5% 50 ML VIAL IM ONE (10:45)
[2018-04-04] MEDS ORDERED: LIDOCAINE HCL 1% 10 ML VIAL INJ ONE (10:45)
[2018-04-04 13:09] LABS: GLUCOMETER DEV NAME(LOC) 2WR 2E; GLUCOSE,POINT OF CARE 209 MG/DL (70-110)
[2018-04-04] MEDS ORDERED: ALBUTEROL SULFATE HFA 90 MCG/PUFF 8 GM INHALER IH PRN (18:00)
[2018-04-04 18:14] LABS: GLUCOMETER DEV NAME(LOC) 2WR 2E; GLUCOSE,POINT OF CARE 205 MG/DL (70-110)
[2018-04-04] MEDS ORDERED: DICLOFENAC SODIUM 1% 100 GM GEL [4GM] TP PRN (18:15)
[2018-04-04] MEDS: SENNA 187 MG TABLET PO SCH (21:39)
[2018-04-04] MEDS: MIRTAZAPINE 15 MG TABLET PO SCH (21:39)
[2018-04-04] MEDS: ATORVASTATIN CALCIUM 40 MG TABLET PO SCH (21:39)
[2018-04-04] MEDS: INSULIN GLARGINE,HUM.REC.ANLOG 100 UNITS/ML SQ SCH (21:41)
[2018-04-04 22:14] LABS: GLUCOMETER DEV NAME(LOC) 2WR 1B; GLUCOSE,POINT OF CARE 283 MG/DL (70-110)
[2018-04-05] VITALS: BP 138/69
[2018-04-05] MEDS: FAMOTIDINE 20 MG TABLET PO SCH ×2 (05:46→17:11)
[2018-04-05] MEDS: LEVOTHYROXINE SODIUM 50 MCG TABLET PO SCH (05:46)
[2018-04-05 06:09] LABS: GLUCOMETER DEV NAME(LOC) 2WR 1B; GLUCOSE,POINT OF CARE 305 MG/DL (70-110)
[2018-04-05 07:00] VITALS: BP 153/70
[2018-04-05] MEDS: OXYGEN THERAPY IH SCH ×2 (08:00→20:00)
[2018-04-05] MEDS: DOCUSATE SODIUM 250 MG CAPSULE PO SCH ×2 (08:59→20:43)
[2018-04-05] MEDS: MULTIVITAMINS WITH MINERALS, THERAPEUTIC TABLET PO SCH (08:59)
[2018-04-05] MEDS: POLYETHYLENE GLYCOL 3350 17 GM PACKET PO SCH ×2 (08:59→20:41)
[2018-04-05] MEDS: CLOPIDOGREL BISULFATE 75 MG TABLET PO SCH (08:59)
[2018-04-05] MEDS: ASPIRIN 81 MG CHEWABLE TABLET PO SCH (08:59)
[2018-04-05] MEDS: HEPARIN SODIUM,PORCINE 5,000 UNITS/ML VIAL SQ SCH ×2 (09:00→20:42)
[2018-04-05] MEDS: INSULIN LISPRO 100 UNITS/ML SQ PRN ×4 (09:02→20:51)
[2018-04-05 12:39] LABS: GLUCOMETER DEV NAME(LOC) 2WR 1B; GLUCOSE,POINT OF CARE 257 MG/DL (70-110)
[2018-04-05] MEDS: DICLOFENAC SODIUM 1% 100 GM GEL [4GM] TP SCH ×2 (14:33→20:41)
[2018-04-05 15:43] VITALS: BP 152/65
[2018-04-05 17:20] LABS: GLUCOMETER DEV NAME(LOC) 2WR 1B; GLUCOSE,POINT OF CARE 253 MG/DL (70-110)
[2018-04-05] MEDS: MIRTAZAPINE 15 MG TABLET PO SCH (20:41)
[2018-04-05] MEDS: ATORVASTATIN CALCIUM 40 MG TABLET PO SCH (20:41)
[2018-04-05] MEDS: SENNA 187 MG TABLET PO SCH (20:42)
[2018-04-05] MEDS: INSULIN GLARGINE,HUM.REC.ANLOG 100 UNITS/ML SQ SCH (20:50)
[2018-04-05 21:53] LABS: GLUCOMETER DEV NAME(LOC) 2WR 2E; GLUCOSE,POINT OF CARE 303 MG/DL (70-110)
[2018-04-06] VITALS: BP 152/83
[2018-04-06] MEDS: FAMOTIDINE 20 MG TABLET PO SCH ×2 (05:52→16:45)
[2018-04-06] MEDS: LEVOTHYROXINE SODIUM 50 MCG TABLET PO SCH (05:52)
[2018-04-06 06:13] LABS: GLUCOMETER DEV NAME(LOC) 2WR 2E; GLUCOSE,POINT OF CARE 247 MG/DL (70-110)
[2018-04-06 07:52] VITALS: BP 157/90
[2018-04-06] MEDS: OXYGEN THERAPY IH SCH ×2 (08:00→20:00)
[2018-04-06] MEDS: HEPARIN SODIUM,PORCINE 5,000 UNITS/ML VIAL SQ SCH ×2 (08:12→20:53)
[2018-04-06] MEDS: CLOPIDOGREL BISULFATE 75 MG TABLET PO SCH (08:12)
[2018-04-06] MEDS: DOCUSATE SODIUM 250 MG CAPSULE PO SCH ×2 (08:12→21:00)
[2018-04-06] MEDS: DICLOFENAC SODIUM 1% 100 GM GEL [4GM] TP SCH ×3 (08:12→21:00)
[2018-04-06] MEDS: TraMADol HCL 50 MG TABLET PO PRN (08:12)
[2018-04-06] MEDS: MULTIVITAMINS WITH MINERALS, THERAPEUTIC TABLET PO SCH (08:12)
[2018-04-06] MEDS: ASPIRIN 81 MG CHEWABLE TABLET PO SCH (08:13)
[2018-04-06] MEDS: POLYETHYLENE GLYCOL 3350 17 GM PACKET PO SCH ×2 (08:16→21:00)
[2018-04-06] MEDS: INSULIN LISPRO 100 UNITS/ML SQ PRN ×4 (08:17→20:58)
[2018-04-06 12:43] LABS: GLUCOMETER DEV NAME(LOC) 2WR 2E; GLUCOSE,POINT OF CARE 334 MG/DL (70-110)
[2018-04-06 17:58] VITALS: BP 142/70
[2018-04-06] MEDS: ATORVASTATIN CALCIUM 40 MG TABLET PO SCH (20:52)
[2018-04-06] MEDS: MIRTAZAPINE 15 MG TABLET PO SCH (20:52)
[2018-04-06] MEDS: INSULIN GLARGINE,HUM.REC.ANLOG 100 UNITS/ML SQ SCH (20:57)
[2018-04-06] MEDS: SENNA 187 MG TABLET PO SCH (21:00)
[2018-04-06 21:33] LABS: GLUCOMETER DEV NAME(LOC) 2WR 1B; GLUCOSE,POINT OF CARE 258 MG/DL (70-110)
[2018-04-06 22:28] LABS: GLUCOMETER DEV NAME(LOC) 2WR 2E; GLUCOSE,POINT OF CARE 296 MG/DL (70-110)
[2018-04-07 00:48] VITALS: BP 148/78
[2018-04-07] MEDS: LEVOTHYROXINE SODIUM 50 MCG TABLET PO SCH (06:07)
[2018-04-07] MEDS: FAMOTIDINE 20 MG TABLET PO SCH ×2 (06:07→16:33)
[2018-04-07 06:35] LABS: GLUCOMETER DEV NAME(LOC) 2WR 1B; GLUCOSE,POINT OF CARE 264 MG/DL (70-110)
[2018-04-07 07:44] VITALS: BP 152/71
[2018-04-07] MEDS: OXYGEN THERAPY IH SCH ×2 (08:00→20:00)
[2018-04-07] MEDS: MULTIVITAMINS WITH MINERALS, THERAPEUTIC TABLET PO SCH (09:32)
[2018-04-07] MEDS: DICLOFENAC SODIUM 1% 100 GM GEL [4GM] TP SCH ×3 (09:32→21:18)
[2018-04-07] MEDS: HEPARIN SODIUM,PORCINE 5,000 UNITS/ML VIAL SQ SCH ×2 (09:32→21:14)
[2018-04-07] MEDS: POLYETHYLENE GLYCOL 3350 17 GM PACKET PO SCH ×2 (09:32→21:00)
[2018-04-07] MEDS: ASPIRIN 81 MG CHEWABLE TABLET PO SCH (09:33)
[2018-04-07] MEDS: DOCUSATE SODIUM 250 MG CAPSULE PO SCH ×2 (09:33→21:00)
[2018-04-07] MEDS: CLOPIDOGREL BISULFATE 75 MG TABLET PO SCH (09:33)
[2018-04-07] MEDS: INSULIN LISPRO 100 UNITS/ML SQ PRN ×4 (10:05→21:16)
[2018-04-07 11:00] VITALS: BP 134/78
[2018-04-07 12:04] LABS: GLUCOMETER DEV NAME(LOC) 2WR 2E; GLUCOSE,POINT OF CARE 194 MG/DL (70-110)
[2018-04-07 15:37] VITALS: BP 148/79
[2018-04-07 17:34] LABS: GLUCOMETER DEV NAME(LOC) 2WR 2E; GLUCOSE,POINT OF CARE 284 MG/DL (70-110)
[2018-04-07] MEDS: SENNA 187 MG TABLET PO SCH (21:00)
[2018-04-07] MEDS ORDERED: INSULIN GLARGINE,HUM.REC.ANLOG 100 UNITS/ML SQ SCH (21:00)
[2018-04-07] MEDS: MIRTAZAPINE 15 MG TABLET PO SCH (21:14)
[2018-04-07] MEDS: ATORVASTATIN CALCIUM 40 MG TABLET PO SCH (21:14)
[2018-04-07] MEDS: TEMAZEPAM 7.5 MG CAPSULE PO PRN (21:20)
[2018-04-07 22:23] LABS: GLUCOMETER DEV NAME(LOC) 2WR 2E; GLUCOSE,POINT OF CARE 343 MG/DL (70-110)
[2018-04-08 01:49] VITALS: BP 144/81
[2018-04-08 05:22] LABS: HEMATOCRIT 31.2 % (41-53); HEMOGLOBIN 10.6 g/dL (13.5-17.5); LYMPHOCYTES # (AUTO) 1.6 K/uL (1.0-4.8); LYMPHOCYTES % (AUTO) 19.5 % (22.0-44.0); MEAN CORPUSCULAR HEMOGLOBIN 29.8 pg (26.0-34.0); MEAN CORPUSCULAR HGB CONC 34.1 G/dL (31.0-37.0); MEAN CORPUSCULAR VOLUME 87 fL (80-100); MONOCYTES # (AUTO) 0.6 K/uL (0.1-1.0); MONOCYTES % (AUTO) 6.9 % (2.0-9.0); NEUTROPHILS # (AUTO) 5.9 K/uL (1.8-7.7); NEUTROPHILS % (AUTO) 70.6 % (40.0-70.0); PLATELET COUNT (AUTO) 279 K/uL (150-450); RED BLOOD CELL COUNT(AUTO) 3.57 MIL/uL (4.50-5.90); RED CELL DISTRIBUTION WIDTH 14.8 % (11.5-14.5)
[2018-04-08 05:51] LABS: ALBUMIN 3.1 g/dL (3.4-5.0); BILIRUBIN,TOTAL 0.4 mg/dL (0.1-1.0); CALCIUM, TOTAL 9.1 mg/dL (8.8-10.5); CREATININE 1.77 mg/dL (0.60-1.30); POTASSIUM 5.5 mmol/L (3.5-5.1); THYROID STIMULATING HORMONE 8.17 uIU/mL (0.36-3.74); TOTAL PROTEIN, SERUM 7.1 g/dL (6.4-8.2)
[2018-04-08] MEDS: FAMOTIDINE 20 MG TABLET PO SCH ×2 (06:13→16:29)
[2018-04-08] MEDS: LEVOTHYROXINE SODIUM 50 MCG TABLET PO SCH (06:13)
[2018-04-08 06:39] LABS: GLUCOMETER DEV NAME(LOC) 2WR 2E; GLUCOSE,POINT OF CARE 285 MG/DL (70-110)
[2018-04-08 07:30] VITALS: BP 149/80
[2018-04-08] MEDS: OXYGEN THERAPY IH SCH ×2 (08:00→20:00)
[2018-04-08] MEDS: ASPIRIN 81 MG CHEWABLE TABLET PO SCH (09:00)
[2018-04-08] MEDS: HEPARIN SODIUM,PORCINE 5,000 UNITS/ML VIAL SQ SCH ×2 (09:00→20:34)
[2018-04-08] MEDS: DOCUSATE SODIUM 250 MG CAPSULE PO SCH ×2 (09:00→20:34)
[2018-04-08] MEDS: CLOPIDOGREL BISULFATE 75 MG TABLET PO SCH (09:00)
[2018-04-08] MEDS: MULTIVITAMINS WITH MINERALS, THERAPEUTIC TABLET PO SCH (09:00)
[2018-04-08] MEDS: DICLOFENAC SODIUM 1% 100 GM GEL [4GM] TP SCH ×3 (09:00→21:09)
[2018-04-08] MEDS: POLYETHYLENE GLYCOL 3350 17 GM PACKET PO SCH ×2 (09:00→20:34)
[2018-04-08] MEDS ORDERED: SODIUM POLYSTYRENE SULFONATE 15 GM/60 ML SUSPENSION BOTTLE PO ONE (09:45)
[2018-04-08] MEDS: FOSINOPRIL SODIUM 10 MG PO SCH (10:38)
[2018-04-08] MEDS: SODIUM CHLORIDE 0.9% 1,000 ML IV SCH ×2 (10:52→22:29)
[2018-04-08 12:45] LABS: GLUCOMETER DEV NAME(LOC) 2WR 1B; GLUCOSE,POINT OF CARE 307 MG/DL (70-110)
[2018-04-08] MEDS: INSULIN LISPRO 100 UNITS/ML SQ PRN ×3 (12:57→21:08)
[2018-04-08 15:33] VITALS: BP 139/78
[2018-04-08 17:54] LABS: GLUCOMETER DEV NAME(LOC) 2WR 2E; GLUCOSE,POINT OF CARE 262 MG/DL (70-110)
[2018-04-08] MEDS: ATORVASTATIN CALCIUM 40 MG TABLET PO SCH (20:34)
[2018-04-08] MEDS: MIRTAZAPINE 15 MG TABLET PO SCH (20:34)
[2018-04-08] MEDS: SENNA 187 MG TABLET PO SCH (20:34)
[2018-04-08] MEDS ORDERED: INSULIN GLARGINE,HUM.REC.ANLOG 100 UNITS/ML SQ SCH (21:00)
[2018-04-08 21:44] LABS: GLUCOMETER DEV NAME(LOC) 2WR 2E; GLUCOSE,POINT OF CARE 339 MG/DL (70-110)
[2018-04-08 23:22] VITALS: BP 143/71
[2018-04-09] MEDS: TEMAZEPAM 7.5 MG CAPSULE PO PRN (00:24)
[2018-04-09] MEDS: SODIUM CHLORIDE 0.9% 1,000 ML IV SCH ×2 (03:35→20:23)
[2018-04-09] MEDS: LEVOTHYROXINE SODIUM 50 MCG TABLET PO SCH (05:53)
[2018-04-09] MEDS: FAMOTIDINE 20 MG TABLET PO SCH ×2 (05:53→16:39)
[2018-04-09 06:30] LABS: GLUCOMETER DEV NAME(LOC) 2WR 2E; GLUCOSE,POINT OF CARE 254 MG/DL (70-110)
[2018-04-09 07:10] VITALS: BP 145/70
[2018-04-09] MEDS: OXYGEN THERAPY IH SCH ×2 (08:00→20:00)
[2018-04-09] MEDS: DOCUSATE SODIUM 250 MG CAPSULE PO SCH ×3 (09:00→20:58)
[2018-04-09] MEDS: POLYETHYLENE GLYCOL 3350 17 GM PACKET PO SCH ×3 (09:00→20:59)
[2018-04-09 09:13] LABS: CALCIUM, TOTAL 8.7 mg/dL (8.8-10.5); CREATININE 1.55 mg/dL (0.60-1.30); FREE T4 (FREE THYROXINE) 0.72 ng/dL (0.76-1.46); MAGNESIUM 1.9 mg/dL (1.80-2.40); POTASSIUM 4.4 mmol/L (3.5-5.1)
[2018-04-09 09:18] LABS: BASOPHILS % (AUTO) 0.8 % (0.0-2.0); EOSINOPHILS % (AUTO) 2.1 % (1.0-6.0); HEMATOCRIT 31.4 % (41-53); HEMOGLOBIN 10.7 g/dL (13.5-17.5); LYMPHOCYTES # (AUTO) 1.6 K/uL (1.0-4.8); LYMPHOCYTES % (AUTO) 18.2 % (22.0-44.0); MEAN CORPUSCULAR HGB CONC 34.1 G/dL (31.0-37.0); MEAN CORPUSCULAR VOLUME 88 fL (80-100); MONOCYTES # (AUTO) 0.6 K/uL (0.1-1.0); MONOCYTES % (AUTO) 6.4 % (2.0-9.0); NEUTROPHILS # (AUTO) 6.3 K/uL (1.8-7.7); NEUTROPHILS % (AUTO) 72.5 % (40.0-70.0); PLATELET COUNT (AUTO) 284 K/uL (150-450); RED BLOOD CELL COUNT(AUTO) 3.58 MIL/uL (4.50-5.90); RED CELL DISTRIBUTION WIDTH 15.1 % (11.5-14.5)
[2018-04-09] MEDS: MULTIVITAMINS WITH MINERALS, THERAPEUTIC TABLET PO SCH (09:23)
[2018-04-09] MEDS: FOSINOPRIL SODIUM 10 MG PO SCH (09:23)
[2018-04-09] MEDS: CLOPIDOGREL BISULFATE 75 MG TABLET PO SCH (09:23)
[2018-04-09] MEDS: ASPIRIN 81 MG CHEWABLE TABLET PO SCH (09:23)
[2018-04-09] MEDS: DICLOFENAC SODIUM 1% 100 GM GEL [4GM] TP SCH ×3 (09:23→20:53)
[2018-04-09] MEDS: HEPARIN SODIUM,PORCINE 5,000 UNITS/ML VIAL SQ SCH ×2 (09:24→20:53)
[2018-04-09 12:24] LABS: GLUCOMETER DEV NAME(LOC) 2WR 2E; GLUCOSE,POINT OF CARE 298 MG/DL (70-110)
[2018-04-09] MEDS: INSULIN LISPRO 100 UNITS/ML SQ PRN ×3 (12:27→20:56)
[2018-04-09 16:00] VITALS: BP 135/75
[2018-04-09 17:49] LABS: GLUCOMETER DEV NAME(LOC) 2WR 1B; GLUCOSE,POINT OF CARE 232 MG/DL (70-110)
[2018-04-09] MEDS: ATORVASTATIN CALCIUM 40 MG TABLET PO SCH (20:53)
[2018-04-09] MEDS: MIRTAZAPINE 15 MG TABLET PO SCH (20:54)
[2018-04-09] MEDS: SENNA 187 MG TABLET PO SCH (20:59)
[2018-04-09] MEDS ORDERED: INSULIN GLARGINE,HUM.REC.ANLOG 100 UNITS/ML SQ SCH (21:00)
[2018-04-09 21:44] LABS: GLUCOMETER DEV NAME(LOC) 2WR 2E; GLUCOSE,POINT OF CARE 258 MG/DL (70-110)
[2018-04-09 23:55] VITALS: BP 141/90
[2018-04-10] MEDS: LEVOTHYROXINE SODIUM 75 MCG TABLET PO SCH (05:33)
[2018-04-10] MEDS: FAMOTIDINE 20 MG TABLET PO SCH ×2 (05:34→15:39)
[2018-04-10 05:49] LABS: GLUCOMETER DEV NAME(LOC) 2WR 2E; GLUCOSE,POINT OF CARE 226 MG/DL (70-110)
[2018-04-10] MEDS ORDERED: SENN8.6T52 PO (06:15)
[2018-04-10] MEDS ORDERED: INSLAN SQ (06:15)
[2018-04-10] MEDS ORDERED: METF500T6 PO (06:15)
[2018-04-10] MEDS ORDERED: PIOG30TA10 PO (06:15)
[2018-04-10] MEDS ORDERED: FERR-89 PO (06:15)
[2018-04-10] MEDS ORDERED: MULT1CAP32 PO (06:15)
[2018-04-10] MEDS ORDERED: AMYL1CAP45 PO (06:15)
[2018-04-10] MEDS ORDERED: LEVO50 PO (06:15)
[2018-04-10] MEDS ORDERED: MELA1TAB17 PO (06:15)
[2018-04-10] MEDS ORDERED: OMEG-135 PO (06:15)
[2018-04-10] MEDS ORDERED: ATOR20TA86 PO (06:15)
[2018-04-10] MEDS ORDERED: ASPI-989 PO (06:15)
[2018-04-10] MEDS ORDERED: SERT50TA12 PO (06:15)
[2018-04-10 07:00] VITALS: BP 139/82
[2018-04-10] MEDS: OXYGEN THERAPY IH SCH ×2 (08:00→20:00)
[2018-04-10 08:30] LABS: CALCIUM, TOTAL 8.9 mg/dL (8.8-10.5); CREATININE 1.46 mg/dL (0.60-1.30); POTASSIUM 4.8 mmol/L (3.5-5.1)
[2018-04-10] MEDS: POLYETHYLENE GLYCOL 3350 17 GM PACKET PO SCH ×3 (08:51→21:00)
[2018-04-10] MEDS: FOSINOPRIL SODIUM 10 MG PO SCH (08:52)
[2018-04-10] MEDS: HEPARIN SODIUM,PORCINE 5,000 UNITS/ML VIAL SQ SCH ×3 (08:53→21:56)
[2018-04-10] MEDS: CLOPIDOGREL BISULFATE 75 MG TABLET PO SCH (08:53)
[2018-04-10] MEDS: MULTIVITAMINS WITH MINERALS, THERAPEUTIC TABLET PO SCH (08:53)
[2018-04-10] MEDS: DOCUSATE SODIUM 250 MG CAPSULE PO SCH ×3 (08:53→21:00)
[2018-04-10] MEDS: ASPIRIN 81 MG CHEWABLE TABLET PO SCH (08:53)
[2018-04-10] MEDS: INSULIN LISPRO 100 UNITS/ML SQ PRN ×4 (08:57→21:58)
[2018-04-10] MEDS: DICLOFENAC SODIUM 1% 100 GM GEL [4GM] TP SCH ×3 (09:01→21:55)
[2018-04-10] MEDS: ACETAMINOPHEN 325 MG TABLET PO PRN ×2 (09:57→22:04)
[2018-04-10] MEDS: SODIUM CHLORIDE 0.9% 1,000 ML IV SCH ×2 (09:58→23:29)
[2018-04-10] MEDS: 0.9% SODIUM CHLORIDE 10 ML SYRINGE IVP SCH ×2 (09:58→15:39)
[2018-04-10 12:14] LABS: GLUCOMETER DEV NAME(LOC) 2WR 1B; GLUCOSE,POINT OF CARE 212 MG/DL (70-110)
[2018-04-10 15:52] VITALS: BP 149/81
[2018-04-10 17:38] LABS: GLUCOMETER DEV NAME(LOC) 2WR 2E; GLUCOSE,POINT OF CARE 184 MG/DL (70-110)
[2018-04-10] MEDS: TraMADol HCL 50 MG TABLET PO PRN (18:47)
[2018-04-10] MEDS: SENNA 187 MG TABLET PO SCH (21:00)
[2018-04-10] MEDS ORDERED: INSULIN GLARGINE,HUM.REC.ANLOG 100 UNITS/ML SQ SCH (21:00)
[2018-04-10] MEDS: MIRTAZAPINE 15 MG TABLET PO SCH (21:55)
[2018-04-10] MEDS: ATORVASTATIN CALCIUM 40 MG TABLET PO SCH (21:55)
[2018-04-10] MEDS: TEMAZEPAM 7.5 MG CAPSULE PO PRN (22:35)
[2018-04-11] VITALS: BP 148/67
[2018-04-11 00:03] LABS: GLUCOMETER DEV NAME(LOC) 2WR 1B; GLUCOSE,POINT OF CARE 322 MG/DL (70-110)
[2018-04-11] MEDS: 0.9% SODIUM CHLORIDE 10 ML SYRINGE IVP SCH ×4 (00:11→23:13)
[2018-04-11] MEDS: TraMADol HCL 50 MG TABLET PO PRN (02:37)
[2018-04-11] MEDS: LEVOTHYROXINE SODIUM 75 MCG TABLET PO SCH (05:52)
[2018-04-11] MEDS: FAMOTIDINE 20 MG TABLET PO SCH ×2 (05:52→15:46)
[2018-04-11 06:19] LABS: GLUCOMETER DEV NAME(LOC) 2WR 1B; GLUCOSE,POINT OF CARE 241 MG/DL (70-110)
[2018-04-11 07:29] VITALS: BP 116/57
[2018-04-11] MEDS: OXYGEN THERAPY IH SCH ×2 (08:00→20:00)
[2018-04-11] MEDS: MULTIVITAMINS WITH MINERALS, THERAPEUTIC TABLET PO SCH (08:04)
[2018-04-11] MEDS: CLOPIDOGREL BISULFATE 75 MG TABLET PO SCH (08:04)
[2018-04-11] MEDS: DOCUSATE SODIUM 250 MG CAPSULE PO SCH ×2 (08:04→21:00)
[2018-04-11] MEDS: DICLOFENAC SODIUM 1% 100 GM GEL [4GM] TP SCH ×3 (08:05→20:41)
[2018-04-11] MEDS: HEPARIN SODIUM,PORCINE 5,000 UNITS/ML VIAL SQ SCH ×2 (08:05→20:41)
[2018-04-11] MEDS: FOSINOPRIL SODIUM 10 MG PO SCH (08:06)
[2018-04-11] MEDS: ASPIRIN 81 MG CHEWABLE TABLET PO SCH (08:06)
[2018-04-11] MEDS: POLYETHYLENE GLYCOL 3350 17 GM PACKET PO SCH ×2 (08:19→21:00)
[2018-04-11] MEDS: INSULIN LISPRO 100 UNITS/ML SQ PRN ×4 (08:26→20:53)
[2018-04-11] MEDS: SODIUM CHLORIDE 0.9% 1,000 ML IV SCH ×2 (09:25→15:39)
[2018-04-11 10:59] LABS: CALCIUM, TOTAL 8.8 mg/dL (8.8-10.5); CREATININE 1.45 mg/dL (0.60-1.30); POTASSIUM 4.5 mmol/L (3.5-5.1)
[2018-04-11 12:29] LABS: GLUCOMETER DEV NAME(LOC) 2WR 2E; GLUCOSE,POINT OF CARE 213 MG/DL (70-110)
[2018-04-11] MEDS: INSULIN LISPRO 100 UNITS/ML SQ SCH ×2 (12:31→17:32)
[2018-04-11 15:30] VITALS: BP 167/87
[2018-04-11] MEDS: ATORVASTATIN CALCIUM 40 MG TABLET PO SCH (20:42)
[2018-04-11] MEDS: MIRTAZAPINE 15 MG TABLET PO SCH (20:42)
[2018-04-11] MEDS ORDERED: INSULIN GLARGINE,HUM.REC.ANLOG 100 UNITS/ML SQ SCH (21:00)
[2018-04-11] MEDS: SENNA 187 MG TABLET PO SCH (21:00)
[2018-04-11 21:58] LABS: GLUCOMETER DEV NAME(LOC) 2WR 2E; GLUCOSE,POINT OF CARE 255 MG/DL (70-110)
[2018-04-11 21:58] LABS: GLUCOMETER DEV NAME(LOC) 2WR 2E; GLUCOSE,POINT OF CARE 204 MG/DL (70-110)
[2018-04-11] MEDS: TEMAZEPAM 7.5 MG CAPSULE PO PRN (23:14)
[2018-04-11 23:18] VITALS: BP 119/62
[2018-04-12 05:52] LABS: GLUCOMETER DEV NAME(LOC) 2WR 1B; GLUCOSE,POINT OF CARE 180 MG/DL (70-110)
[2018-04-12] MEDS: LEVOTHYROXINE SODIUM 75 MCG TABLET PO SCH (06:06)
[2018-04-12] MEDS: FAMOTIDINE 20 MG TABLET PO SCH ×2 (06:06→16:40)
[2018-04-12] MEDS: OXYGEN THERAPY IH SCH ×2 (08:00→20:00)
[2018-04-12 08:18] LABS: CALCIUM, TOTAL 9.4 mg/dL (8.8-10.5); CREATININE 1.31 mg/dL (0.60-1.30); POTASSIUM 5.4 mmol/L (3.5-5.1)
[2018-04-12] MEDS: POLYETHYLENE GLYCOL 3350 17 GM PACKET PO SCH ×2 (09:02→21:00)
[2018-04-12] MEDS: DICLOFENAC SODIUM 1% 100 GM GEL [4GM] TP SCH ×3 (09:03→21:05)
[2018-04-12] MEDS: CLOPIDOGREL BISULFATE 75 MG TABLET PO SCH (09:03)
[2018-04-12] MEDS: DOCUSATE SODIUM 250 MG CAPSULE PO SCH ×2 (09:03→21:00)
[2018-04-12] MEDS: FOSINOPRIL SODIUM 10 MG PO SCH (09:04)
[2018-04-12] MEDS: MULTIVITAMINS WITH MINERALS, THERAPEUTIC TABLET PO SCH (09:04)
[2018-04-12] MEDS: HEPARIN SODIUM,PORCINE 5,000 UNITS/ML VIAL SQ SCH ×2 (09:04→21:06)
[2018-04-12] MEDS: ASPIRIN 81 MG CHEWABLE TABLET PO SCH (09:05)
[2018-04-12 09:15] VITALS: BP 149/74
[2018-04-12] MEDS: TraMADol HCL 50 MG TABLET PO PRN ×2 (09:15→23:18)
[2018-04-12] MEDS ORDERED: INSULIN LISPRO 100 UNITS/ML SQ ONE (09:15)
[2018-04-12] MEDS: INSULIN LISPRO 100 UNITS/ML SQ PRN ×3 (09:20→21:08)
[2018-04-12] MEDS: SODIUM CHLORIDE 0.9% 1,000 ML IV SCH ×2 (09:25→21:30)
[2018-04-12] MEDS: 0.9% SODIUM CHLORIDE 10 ML SYRINGE IVP SCH ×3 (09:27→23:18)
[2018-04-12 12:29] LABS: GLUCOMETER DEV NAME(LOC) 2WR 1B; GLUCOSE,POINT OF CARE 186 MG/DL (70-110)
[2018-04-12] MEDS: INSULIN LISPRO 100 UNITS/ML SQ SCH ×2 (12:56→18:09)
[2018-04-12] MEDS ORDERED: SODIUM POLYSTYRENE SULFONATE 15 GM/60 ML SUSPENSION BOTTLE PO ONE (14:45)
[2018-04-12 15:52] VITALS: BP 124/64
[2018-04-12 17:49] LABS: GLUCOMETER DEV NAME(LOC) 2WR 1B; GLUCOSE,POINT OF CARE 106 MG/DL (70-110)
[2018-04-12] MEDS: SENNA 187 MG TABLET PO SCH (21:00)
[2018-04-12] MEDS: MIRTAZAPINE 15 MG TABLET PO SCH (21:05)
[2018-04-12] MEDS: ATORVASTATIN CALCIUM 40 MG TABLET PO SCH (21:05)
[2018-04-12] MEDS: INSULIN GLARGINE,HUM.REC.ANLOG 100 UNITS/ML SQ SCH (21:08)
[2018-04-12 21:43] LABS: GLUCOMETER DEV NAME(LOC) 2WR 2E; GLUCOSE,POINT OF CARE 155 MG/DL (70-110)
[2018-04-12 23:19] VITALS: BP 146/63
[2018-04-12] MEDS: TEMAZEPAM 7.5 MG CAPSULE PO PRN (23:19)
[2018-04-13] MEDS: LEVOTHYROXINE SODIUM 75 MCG TABLET PO SCH (05:42)
[2018-04-13] MEDS: FAMOTIDINE 20 MG TABLET PO SCH ×2 (05:42→17:03)
[2018-04-13 05:48] LABS: GLUCOMETER DEV NAME(LOC) 2WR 2E; GLUCOSE,POINT OF CARE 106 MG/DL (70-110)
[2018-04-13] MEDS: SODIUM CHLORIDE 0.9% 1,000 ML IV SCH ×3 (07:30→17:30)
[2018-04-13 07:44] LABS: CALCIUM, TOTAL 8.5 mg/dL (8.8-10.5); CREATININE 1.33 mg/dL (0.60-1.30); POTASSIUM 4.7 mmol/L (3.5-5.1)
[2018-04-13] MEDS: OXYGEN THERAPY IH SCH ×2 (08:00→20:00)
[2018-04-13 08:05] VITALS: BP 108/57
[2018-04-13] MEDS: FOSINOPRIL SODIUM 10 MG PO SCH (08:11)
[2018-04-13] MEDS: HEPARIN SODIUM,PORCINE 5,000 UNITS/ML VIAL SQ SCH ×2 (08:11→21:15)
[2018-04-13] MEDS: CLOPIDOGREL BISULFATE 75 MG TABLET PO SCH (08:12)
[2018-04-13] MEDS: MULTIVITAMINS WITH MINERALS, THERAPEUTIC TABLET PO SCH (08:12)
[2018-04-13] MEDS: ASPIRIN 81 MG CHEWABLE TABLET PO SCH (08:12)
[2018-04-13] MEDS: INSULIN LISPRO 100 UNITS/ML SQ SCH ×3 (08:13→16:30)
[2018-04-13] MEDS: POLYETHYLENE GLYCOL 3350 17 GM PACKET PO SCH ×2 (08:14→21:00)
[2018-04-13] MEDS: DOCUSATE SODIUM 250 MG CAPSULE PO SCH ×2 (08:14→21:00)
[2018-04-13] MEDS: DICLOFENAC SODIUM 1% 100 GM GEL [4GM] TP SCH ×4 (08:14→21:00)
[2018-04-13] MEDS: 0.9% SODIUM CHLORIDE 10 ML SYRINGE IVP SCH ×3 (08:16→23:49)
[2018-04-13 12:28] LABS: GLUCOMETER DEV NAME(LOC) 2WR 1B; GLUCOSE,POINT OF CARE 92 MG/DL (70-110)
[2018-04-13 15:14] VITALS: BP 138/79
[2018-04-13 18:18] LABS: GLUCOMETER DEV NAME(LOC) 2WR 1B; GLUCOSE,POINT OF CARE 79 MG/DL (70-110)
[2018-04-13 18:18] LABS: GLUCOMETER DEV NAME(LOC) 2WR 1B; GLUCOSE,POINT OF CARE 66 MG/DL (70-110)
[2018-04-13] MEDS: SENNA 187 MG TABLET PO SCH (21:00)
[2018-04-13] MEDS: ATORVASTATIN CALCIUM 40 MG TABLET PO SCH (21:15)
[2018-04-13] MEDS: MIRTAZAPINE 15 MG TABLET PO SCH (21:15)
[2018-04-13] MEDS: TEMAZEPAM 7.5 MG CAPSULE PO PRN (21:15)
[2018-04-13] MEDS: INSULIN GLARGINE,HUM.REC.ANLOG 100 UNITS/ML SQ SCH (21:16)
[2018-04-13] MEDS: INSULIN LISPRO 100 UNITS/ML SQ PRN (21:19)
[2018-04-13 21:38] LABS: GLUCOMETER DEV NAME(LOC) 2WR 2E; GLUCOSE,POINT OF CARE 218 MG/DL (70-110)
[2018-04-13 23:55] VITALS: BP 140/76
[2018-04-14] MEDS: SODIUM CHLORIDE 0.9% 1,000 ML IV SCH (03:30)
[2018-04-14 05:59] LABS: GLUCOMETER DEV NAME(LOC) 2WR 1B; GLUCOSE,POINT OF CARE 81 MG/DL (70-110)
[2018-04-14] MEDS: FAMOTIDINE 20 MG TABLET PO SCH (06:13)
[2018-04-14] MEDS: LEVOTHYROXINE SODIUM 75 MCG TABLET PO SCH (06:13)
[2018-04-14 07:00] VITALS: BP 150/73
[2018-04-14] MEDS: INSULIN LISPRO 100 UNITS/ML SQ SCH ×2 (07:00→11:30)
[2018-04-14 07:06] LABS: CALCIUM, TOTAL 9.1 mg/dL (8.8-10.5); CREATININE 1.36 mg/dL (0.60-1.30); POTASSIUM 5.4 mmol/L (3.5-5.1)
[2018-04-14] MEDS: FOSINOPRIL SODIUM 10 MG PO SCH (07:41)
[2018-04-14] MEDS: MULTIVITAMINS WITH MINERALS, THERAPEUTIC TABLET PO SCH (07:42)
[2018-04-14] MEDS: POLYETHYLENE GLYCOL 3350 17 GM PACKET PO SCH ×2 (07:42→09:00)
[2018-04-14] MEDS: ASPIRIN 81 MG CHEWABLE TABLET PO SCH (07:42)
[2018-04-14] MEDS: CLOPIDOGREL BISULFATE 75 MG TABLET PO SCH (07:43)
[2018-04-14] MEDS: DOCUSATE SODIUM 250 MG CAPSULE PO SCH ×2 (07:43→09:00)
[2018-04-14] MEDS: DICLOFENAC SODIUM 1% 100 GM GEL [4GM] TP SCH (07:43)
[2018-04-14] MEDS: HEPARIN SODIUM,PORCINE 5,000 UNITS/ML VIAL SQ SCH (07:44)
[2018-04-14] MEDS: OXYGEN THERAPY IH SCH (08:00)
[2018-04-14] MEDS ORDERED: SODIUM POLYSTYRENE SULFONATE 15 GM/60 ML SUSPENSION BOTTLE PO ONE (08:30)
[2018-04-14] MEDS ORDERED: VALSARTAN 40 MG TABLET PO SCH (09:00)
[2018-04-14 09:38] VITALS: BP 148/84
[2018-04-14] MEDS: 0.9% SODIUM CHLORIDE 10 ML SYRINGE IVP SCH (09:43)
[2018-04-14 11:00] VITALS: BP 115/62
[2018-04-14 11:18] LABS: GLUCOMETER DEV NAME(LOC) 2WR 2E; GLUCOSE,POINT OF CARE 165 MG/DL (70-110)
[2018-04-14 12:49] LABS: GLUCOMETER DEV NAME(LOC) 2WR 1B; GLUCOSE,POINT OF CARE 166 MG/DL (70-110)
== END 2018-04-14 15:20 | DRG 64 ==
LOC: 2WR 16:50
PROVIDERS: ADMIT Physical Medicine & Rehabilitation; ATTEND Physical Medicine & Rehabilitation
DX: I63.9 Cerebral infarction, unspecified (principal); I61.2 Nontraumatic intracerebral hemorrhage in hemisphere, unspecified; G81.94 Hemiplegia, unspecified affecting left nondominant side; E03.9 Hypothyroidism, unspecified; E11.9 Type 2 diabetes mellitus without complications; E78.5 Hyperlipidemia, unspecified; F12.90 Cannabis use, unspecified, uncomplicated; I10 Essential (primary) hypertension; K59.00 Constipation, unspecified; Z82.3 Family history of stroke; Z85.46 Personal history of malignant neoplasm of prostate; Z91.81 History of falling
CPT/HCPCS: 70450; 73503; 74019; 82271; 83735; 84439; 84443; 87081; 92507; 92508; 92521; 97110; 97112; 97116; 97150; 97163; 97166; 97530; 97535; 99366; J1644; J1815; J3301; J3490; J7030; Q0162

== ENCOUNTER 2018-08-29 17:54 | Emergency (ER) | payer MEDICARE, OTHER ==
[~2018-08-29] VITALS: Ht 170.2 cm; Wt 86.5 kg
[~2018-08-29 17:54] MED LIST: AMLO-511 PO; AMYL1CAP45 PO; ATOR20TA86 PO; BACL10TA PO; CLOP75 PO; FERR-89 PO; GABA-531 PO; HEPA500018 SQ; INSU100V SQ; LEVE250T55 PO; LEVO50 PO; LEVO500 PO; MELA5TAB12 PO; METR500 PO; MIRT15 PO; MULT1CAP32 PO; PANT40TA25 PO; PIOG30TA10 PO; SENN8.6T52 PO; SERT50TA12 PO; TRAM50TA4 PO
[2018-08-29 18:14] LABS: GLUCOSE,POINT OF CARE 129 MG/DL (70-110)
[2018-08-29] MEDS ORDERED: QUET25TA PO (18:24)
[2018-08-29] MEDS ORDERED: ASPI81 PO (18:24)
[2018-08-29] MEDS ORDERED: AMYL1CAP45 PO (18:24)
[2018-08-29] MEDS ORDERED: DOCU100C33 PO (18:24)
[2018-08-29 19:10] LABS: BASOPHILS % (AUTO) 0.8 % (0.0-2.0); EOSINOPHILS % (AUTO) 3.3 % (1.0-6.0); HEMATOCRIT 29.8 % (41-53); HEMOGLOBIN 9.9 g/dL (13.5-17.5); LYMPHOCYTES # (AUTO) 1.1 K/uL (1.0-4.8); LYMPHOCYTES % (AUTO) 16.6 % (22.0-44.0); MEAN CORPUSCULAR HEMOGLOBIN 29.4 pg (26.0-34.0); MEAN CORPUSCULAR HGB CONC 33.1 G/dL (31.0-37.0); MEAN CORPUSCULAR VOLUME 89 fL (80-100); MONOCYTES # (AUTO) 0.5 K/uL (0.1-1.0); MONOCYTES % (AUTO) 7.1 % (2.0-9.0); NEUTROPHILS # (AUTO) 4.8 K/uL (1.8-7.7); NEUTROPHILS % (AUTO) 72.2 % (40.0-70.0); PLATELET COUNT (AUTO) 244 K/uL (150-450); RED BLOOD CELL COUNT(AUTO) 3.36 MIL/uL (4.50-5.90); RED CELL DISTRIBUTION WIDTH 16.1 % (11.5-14.5)
[2018-08-29 19:24] LABS: APPEARANCE,URINE CLEAR (CLEAR); BILIRUBIN,URINE NEGATIVE (NEGATIVE); GLUCOSE, URINE (UA) NEGATIVE (NEGATIVE); KETONES,URINE NEGATIVE (NEGATIVE); LEUKOCYTE ESTERASE ,URINE NEGATIVE (NEGATIVE); NITRATE,URINE NEGATIVE (NEGATIVE); OCCULT BLOOD,URINE NEGATIVE (NEGATIVE); PROTEIN,URINE POS 1+ (NEGATIVE); UROBILINOGEN,URINE 0.2 mg/dL (<=1.0)
[2018-08-29 19:27] LABS: CALCIUM, TOTAL 8.6 mg/dL (8.8-10.5); CREATININE 2.08 mg/dL (0.60-1.30); POTASSIUM 4.3 mmol/L (3.5-5.1)
[2018-08-29 19:35] LABS: ALBUMIN 3.5 g/dL (3.4-5.0); BILIRUBIN,TOTAL 0.3 mg/dL (0.1-1.0); TOTAL PROTEIN, SERUM 7.3 g/dL (6.4-8.2)
[2018-08-29 21:03] VITALS: BP 132/76
== END 2018-08-29 21:25 | disposition home or self-care (01) ==
LOC: EMS 17:55
DX: R10.9 Unspecified abdominal pain (principal); R14.0 Abdominal distension (gaseous); F12.10 Cannabis abuse, uncomplicated; F32.9 Major depressive disorder, single episode, unspecified; E11.9 Type 2 diabetes mellitus without complications; E78.00 Pure hypercholesterolemia, unspecified; I10 Essential (primary) hypertension; E03.9 Hypothyroidism, unspecified; Z86.73 Personal history of transient ischemic attack (TIA), and cerebral infarction without residual deficits
CPT/HCPCS: 93005

== ENCOUNTER 2018-10-06 21:49 | Emergency (ER) | payer MEDICARE, OTHER, MEDICAID ==
[~2018-10-06] VITALS: Ht 175.3 cm; Wt 79.5 kg
[~2018-10-06 21:49] MED LIST changes: +ASPI81 PO; -BACL10TA PO; +DOCU100C33 PO; -HEPA500018 SQ; +LACT30L PO; -LEVO500 PO; -METR500 PO; -PIOG30TA10 PO; +QUET25TA PO; +SENN8.6T20 PO; -SENN8.6T52 PO; -TRAM50TA4 PO
[2018-10-06 22:29] LABS: GLUCOSE,POINT OF CARE 223 MG/DL (70-110)
[2018-10-07 01:31] VITALS: BP 135/75
== END 2018-10-07 02:22 | disposition home or self-care (01) ==
LOC: EMS 21:50
DX: S70.12XA Contusion of left thigh, initial encounter (principal); S80.212A Abrasion, left knee, initial encounter; S80.211A Abrasion, right knee, initial encounter; M54.2 Cervicalgia; E11.9 Type 2 diabetes mellitus without complications; K21.9 Gastro-esophageal reflux disease without esophagitis; E78.00 Pure hypercholesterolemia, unspecified; E03.9 Hypothyroidism, unspecified; I12.9 Hypertensive chronic kidney disease with stage 1 through stage 4 chronic kidney disease, or unspecified chronic kidney disease; E11.22 Type 2 diabetes mellitus with diabetic chronic kidney disease; N18.9 Chronic kidney disease, unspecified; F32.9 Major depressive disorder, single episode, unspecified; F12.90 Cannabis use, unspecified, uncomplicated; Z86.73 Personal history of transient ischemic attack (TIA), and cerebral infarction without residual deficits; Z88.5 Allergy status to narcotic agent; Z79.82 Long term (current) use of aspirin; Z79.4 Long term (current) use of insulin; W05.0XXA Fall from non-moving wheelchair, initial encounter; Y93.89 Activity, other specified; Y92.89 Other specified places as the place of occurrence of the external cause; Y99.8 Other external cause status
CPT/HCPCS: 70450; 72125